=== PATIENT | female | born 1955 | race Caucasian/White ===

== ENCOUNTER → 2020-07-09 | Outpatient (CLI) | payer OTHER ==
--- NOTE | 2020-07-09 13:43 | Diagnostic Imaging Report ---
INDICATION: History of renal calculi. COMPARISON: None FINDINGS: Single frontal radiographic view of the abdomen was obtained and demonstrates multiple bulky calcifications projecting over the renal shadow on the left. Largest calculus measures 2.3 x 2.1 cm and appears to project over the renal pelvis. No unexpected radiopaque foreign bodies are seen. Small bowel loops are nondistended. Moderate air and stool is noted within the colon. IMPRESSION: 1. Left-sided renal calculi. 2. Moderate colonic air and stool. Please correlate for constipation. Dictated by: Dictated on workstation # [id number]
== END ==
LOC: RAD 13:03
PROVIDERS: ATTEND Urology
DX: N20.0 Calculus of kidney (principal)
CPT/HCPCS: 74018

== ENCOUNTER 2020-07-17 05:34 | Outpatient (CLI) | payer OTHER ==
[~2020-07-17] VITALS: Ht 160 cm; Wt 95.3 kg
[2020-07-23] MEDS ORDERED: FISH400C PO (13:04)
[2020-07-23] MEDS ORDERED: LOSA1TAB26 PO (13:04)
[2020-07-23] MEDS ORDERED: GUAI120013 PO (13:04)
[2020-07-23] MEDS ORDERED: ACET-2650 PO (13:04)
[2020-07-23] MEDS ORDERED: DULA3PEN SQ (13:04)
[2020-07-23] MEDS ORDERED: MONT10TA32 PO (13:04)
[2020-07-23] MEDS ORDERED: ATOR40TA70 PO (13:04)
[2020-07-23] MEDS ORDERED: ZINC50TA61 PO (13:04)
[2020-07-23] MEDS ORDERED: METF-399 PO (13:04)
[2020-07-23] MEDS ORDERED: CETI10TA49 PO (13:04)
[2020-07-23] MEDS ORDERED: DIPH25CA79 PO (13:04)
[2020-07-23] MEDS ORDERED: MULT400C3 PO (13:04)
[2020-07-24] MEDS ORDERED: TMSL.4C PO (09:59)
[2020-07-24] MEDS ORDERED: TRAM50TA3 PO (09:59)
[2020-07-24] MEDS ORDERED: NITR-65 PO (09:59)
== END 2020-07-23 16:00 | disposition home or self-care (01) ==
LOC: PREOP 05:34
PROVIDERS: ATTEND Urology
DX: Z01.818 Encounter for other preprocedural examination (principal)

== ENCOUNTER 2020-07-24 06:33 | Day surgery (SDC) | payer MEDICARE, OTHER ==
[2020-07-24] VITALS (9 sets, daily range): BP systolic 128–182; BP diastolic 67–116
[~2020-07-24] VITALS: Ht 160 cm; Wt 95.3 kg
[~2020-07-24 06:33] MED LIST: ACET-2650 PO; ATOR40TA70 PO; CETI10TA49 PO; DIPH25CA79 PO; DULA3PEN SQ; FISH400C PO; GUAI120013 PO; LOSA1TAB26 PO; METF-399 PO; MONT10TA32 PO; MULT400C3 PO; ZINC50TA61 PO
[2020-07-24] MEDS ORDERED: proPOfol 200 MG/20 ML (DIPRIVAN) VIAL IV ONE (06:49)
[2020-07-24] MEDS ORDERED: NEOSTIGMINE 3 MG/3 ML VIAL ONE (06:49)
[2020-07-24] MEDS ORDERED: GLYCOPYRROLATE 0.2 MG/ML (ROBINUL) 2 ML VIAL ONE (06:49)
[2020-07-24] MEDS ORDERED: ONDANSETRON 4 MG/2 ML (SDV) Z0FRAN ONE (06:49)
[2020-07-24] MEDS ORDERED: MIDAZOLAM 2 MG/2 ML (VERSED) VIAL ONE (06:49)
[2020-07-24] MEDS ORDERED: SEVOFLURANE (ULTANE) 15 ML INHAL SOLN ONE ×3 (06:49→08:43)
[2020-07-24] MEDS ORDERED: LIDOCAINE PF 2% 5 ML (XYLOCAINE) VIAL ONE (06:49)
[2020-07-24] MEDS ORDERED: fentaNYL INJ 100 MCG/2 ML AMP ONE (06:49)
[2020-07-24] MEDS ORDERED: ROCURONIUM 10 MG/ML 5 ML SYRINGE IV ONE (06:49)
[2020-07-24] MEDS ORDERED: cefTRIAXone FOR IV USE 1,000 MG in WATER (STERILE) FOR INJECTION 10 ML IV ONE (07:00)
--- NOTE | 2020-07-24 07:08 | Progress Note-Pre Operative ---
Pre-Operative Progress Note H&P Reviewed The H&P was reviewed, patient examined and no changes noted. Date Seen by Provider: July 24, 2020 Time Seen by Provider: 07:08 Date H&P Reviewed: July 24, 2020 Time H&P Reviewed: 07:08 Pre-Operative Diagnosis: LT RENAL STONES ROLANDO LOPEZ MD July 24, 2020 07:08
[2020-07-24] MEDS: LACTATED RINGERS 1,000 ML IV PRN ×2 (07:55→08:49)
--- NOTE | 2020-07-24 07:56 | Diagnostic Imaging Report ---
INDICATION: Nephrolithiasis, extracorporeal shock wave lithotripsy. TECHNIQUE: Single supine view of the abdomen 6:52 AM CORRELATION STUDY: 07/09/2020 FINDINGS: Approximately 2.6 x 1.6 cm heterogeneous grouping calcification of the left upper quadrant. Additional adjacent smaller more fragmented calcification projecting inferiorly to this. This overall appears generally stable and project over the left renal silhouette. No definitive abnormal calcification in the right renal silhouette and/or expected course of either ureter. Overlying bowel gas pattern is nonobstructed. Mild to moderate stool retention. IMPRESSION: 1. No appreciable change in configuration of the calcifications over the left renal silhouette. Dictated by: Dictated on workstation # [id number]
--- NOTE | 2020-07-24 08:22 | Progress Note-Post Operative ---
Post-Operative Progess Note Surgeon (s)/Sales And Catering Coordinator (s) Surgeon ROLANDO LOPEZ MD Sales And Catering Coordinator: NONE Pre-Operative Diagnosis LT RENAL STONES Post-Operative Diagnosis SAME Procedure & Operative Findings Date of Procedure 07/24/20 Procedure Performed/Findings CYSTOSCOPY WITH INSERTION OF LT URETERAL STENT AND LT ESWL Anesthesia Type GENERAL Estimated Blood Loss Estimated blood loss (mL): NONE Specimens/Packing Specimens Removed NONE Packing: NONE ROLANDO LOPEZ MD July 24, 2020 08:21
[2020-07-24] MEDS ORDERED: KETOROLAC 30 MG/ML VIAL ONE (08:23)
[2020-07-24] MEDS ORDERED: FUROSEMIDE 40 MG/4 ML INJ (LASIX) ONE (08:23)
--- NOTE | 2020-07-24 08:25 | Discharge Inst-Urology ---
Discharge Inst-Urology Reconcile Patient Problems Problems Reviewed?: Yes Final Diagnosis LT RENAL STONES Patient Instructions/Follow Up Plan/Assessment/Instructions Please make appointment to been seen in office Tuesday 08/08, KUB prior to it. KUB on way home Post ESWL instructions Increase oral fluids for 48 hours and then as needed. Diet and Activity as tolerated. If questions or concerns contact your physician Or seek help at emergency department. ROLANDO LOPEZ MD July 24, 2020 08:25
[2020-07-24] MEDS ORDERED: PHENYLEPHRINE 100 MCG/ML 10 ML (ANESTHESIA) SYR ONE (08:57)
[2020-07-24] MEDS ORDERED: PROMETHAZINE INJ 25 MG/ML (PHENERGAN) AMP IVP ONE (09:15)
[2020-07-24] MEDS ORDERED: MEPERIDINE (DEMEROL) INJ 50 MG/ML IVP ONE (09:15)
[2020-07-24] MEDS ORDERED: morphine INJ 10 MG/ML 1ML (SYR OR VIAL) IVP ONE (09:15)
[2020-07-24] MEDS ORDERED: ONDANSETRON 4 MG/2 ML (SDV) Z0FRAN IVP PRN (09:15)
--- NOTE | 2020-07-24 09:16 | Anesthesia-General Post-Op ---
General Patient Condition Mental Status/LOC: Same as Preop Cardiovascular: Satisfactory Nausea/Vomiting: Absent Respiratory: Satisfactory Pain: Controlled Complications: Absent Post Op Complications Complications None Follow Up Care/Instructions Patient Instructions None needed. Anesthesia/Patient Condition Patient Condition Patient is doing well, no complaints, stable vital signs, no apparent adverse anesthesia problems. No complications reported per nursing. JOSE R SELBY CRNA July 24, 2020 09:16
[2020-07-24] MEDS ORDERED: TMSL.4C PO (09:59)
[2020-07-24] MEDS ORDERED: NITR-65 PO (09:59)
[2020-07-24] MEDS ORDERED: TRAM50TA3 PO (09:59)
--- NOTE | 2020-07-24 10:46 | Diagnostic Imaging Report ---
INDICATION: Postop ESWL. COMPARISON: 07/24/2020 FINDINGS: A left-sided double-J stent has been placed in good alignment. There has been interval maceration and fragmentation's of left renal calculi. No radiopaque stone along the course of the left shunt. Right flank is negative. The bowel gas pattern is nonobstructive. IMPRESSION: Interval maceration and fragmentation of left-sided intrarenal stones with a double-J stent placed projecting in good alignment. Dictated by: Dictated on workstation # [id number]
--- NOTE | 2020-07-24 13:37 | OPERATIVE REPORT ---
DATE OF SERVICE: 07/24/2020 PREOPERATIVE DIAGNOSIS: Left renal stones. POSTOPERATIVE DIAGNOSIS: Left renal stones. OPERATION PERFORMED: Cystoscopy and insertion of left ureteral stent and left ESWL. SURGEON: Dhaval Lopez MD ANESTHESIA: General. COMPLICATIONS: None. PROCEDURE: The patient with large burden of left renal stones. We decided to have ESWL even if repeated. She refused to go to [place] or [facility] in [place] for percutaneous nephrolithotripsy or antegrade ureterolithotripsy. Taken to the cystoscopy suite, put in the lithotomy position, genitalia were prepped and draped in the usual sterile fashion. Cystoscope was introduced into the bladder. The bladder was essentially normal. The left ureteral orifice was visualized. A 6-Korean 26 cm stent was passed into it and guided fluoroscopically bypassing the left renal stone above it, removing the guidewire, the stent was seen jetting nicely proximally fluoroscopically and distally endoscopically. Bladder was evacuated and the cystoscope was removed. The patient was moved to the ESWL bed supine. The stone, especially the large size pelvic stone was localized and shocks were delivered at kV of 6, a total of 3000 shocks were delivered with fragmentation of the stone. The patient received 40 mg of Lasix and 30 mg of Toradol IV at the end of the procedure. She tolerated the procedure and anesthesia well and was sent to recovery room in stable condition. PLAN: Repeat ESWL in 2 weeks, which the patient was fully aware of it preoperatively. Job ID: [id number] DocumentID: [id number] Dictated Date: 07/24/2020 08:54:28 Water Treatment Plant Operator Date: 07/24/2020 13:36:15 Dictated By: DHAVAL LOPEZ MD
== END 2020-07-24 11:05 | disposition home or self-care (01) ==
LOC: SDC 06:33
PROVIDERS: ATTEND Urology
DX: N20.0 Calculus of kidney (principal); I10 Essential (primary) hypertension; E78.5 Hyperlipidemia, unspecified; E11.9 Type 2 diabetes mellitus without complications; Z79.82 Long term (current) use of aspirin; Z79.899 Other long term (current) drug therapy; Z79.84 Long term (current) use of oral hypoglycemic drugs; Z88.5 Allergy status to narcotic agent; Z91.041 Radiographic dye allergy status; Z90.710 Acquired absence of both cervix and uterus; Z80.9 Family history of malignant neoplasm, unspecified
CPT/HCPCS: 50590; 52332; 74018; 76000; 87081; C2625

== ENCOUNTER → 2020-08-02 | Outpatient (CLI) | payer MEDICARE ==
[~2020-08-02] MED LIST changes: +NITR-65 PO; +TMSL.4C PO; +TRAM50TA3 PO
== END | disposition home or self-care (01) ==
LOC: PREOP 07:12
PROVIDERS: ATTEND Urology
DX: Z01.818 Encounter for other preprocedural examination (principal)

== ENCOUNTER → 2020-08-07 | Outpatient (CLI) | payer MEDICARE ==
--- NOTE | 2020-08-07 15:57 | Diagnostic Imaging Report ---
INDICATION: Left renal stones, status post lithotripsy. COMPARISON: 07/24/2020 TECHNIQUE: Single radiograph of the abdomen dated 08/07/2020 FINDINGS: Left sided ureteral stent is again identified, stable. Multiple calcifications are again identified overlying the left renal shadow centrally. These appears stable to slightly more prominent than compared to the recent examination. No suspicious calcifications along the course of the left ureter. No suspicious calcifications associated with overlying the right renal shadow. Nonobstructive bowel gas pattern. No acute osseous abnormality. IMPRESSION: Multiple left-sided renal calculi are again identified, appearing minimally more prominent than the recent examination. Left-sided ureteral stent remains in place without abnormal calcifications along the course of the left ureteral stent. Dictated by: Dictated on workstation # [id number]
== END ==
LOC: RAD 12:15
PROVIDERS: ATTEND Urology
DX: N20.0 Calculus of kidney (principal); Z98.890 Other specified postprocedural states; Z96.0 Presence of urogenital implants
CPT/HCPCS: 74018

== ENCOUNTER 2020-08-08 06:13 | Day surgery (SDC) | payer MEDICARE ==
[~2020-08-08] VITALS: Ht 165 cm; Wt 95.3 kg
[2020-08-08] VITALS (11 sets, daily range): BP systolic 128–150; BP diastolic 8–89
[2020-08-08] MEDS ORDERED: cefTRIAXone FOR IV USE 1,000 MG in WATER (STERILE) FOR INJECTION 10 ML IV ONE (06:15)
[2020-08-08] MEDS: LACTATED RINGERS 1,000 ML IV PRN ×2 (06:30→07:55)
[2020-08-08 06:52] LABS: BILIRUBIN,URINE NEGATIVE (NEGATIVE); CLARITY,URINE CLOUDY; COLOR,URINE RED; GLUCOSE, URINE (UA) NEGATIVE (NEGATIVE); KETONES,URINE NEGATIVE (NEGATIVE); LEUKOCYTE ESTERASE ,URINE 2+ (NEGATIVE); NITRITE,URINE NEGATIVE (NEGATIVE); PH,URINE 6.5 (5-9); PROTEIN,URINE 2+ (NEGATIVE)
[2020-08-08] MEDS ORDERED: LIDOCAINE PF 2% 5 ML (XYLOCAINE) VIAL ONE (06:52)
[2020-08-08] MEDS ORDERED: proPOfol 200 MG/20 ML (DIPRIVAN) VIAL IV ONE (06:52)
[2020-08-08] MEDS ORDERED: SEVOFLURANE (ULTANE) 15 ML INHAL SOLN ONE ×2 (06:52→07:54)
[2020-08-08] MEDS ORDERED: fentaNYL INJ 100 MCG/2 ML AMP ONE (06:53)
[2020-08-08] MEDS ORDERED: MIDAZOLAM 2 MG/2 ML (VERSED) VIAL ONE (06:53)
[2020-08-08] MEDS ORDERED: ONDANSETRON 4 MG/2 ML (SDV) Z0FRAN ONE (06:55)
--- NOTE | 2020-08-08 07:00 | Progress Note-Pre Operative ---
Pre-Operative Progress Note H&P Reviewed The H&P was reviewed, patient examined and no changes noted. Date Seen by Provider: Aug 08, 2020 Time Seen by Provider: 07:00 Date H&P Reviewed: Aug 08, 2020 Time H&P Reviewed: 07:00 Pre-Operative Diagnosis: LT RENAL STONES ROLANDO LOPEZ MD Aug 08, 2020 07:00
[2020-08-08 07:06] LABS: BACTERIA,URINE TRACE /HPF; RBC,URINE TNTC /HPF; SQUAMOUS EPITHELIAL CELL,UR 0-2 /HPF
--- NOTE | 2020-08-08 07:28 | Progress Note-Post Operative ---
Post-Operative Progess Note Surgeon (s)/Mix Mill Tender (s) Surgeon ROLANDO LOPEZ MD Mix Mill Tender: NONE Pre-Operative Diagnosis LT RENAL STONES Post-Operative Diagnosis SAME Procedure & Operative Findings Date of Procedure 08/08/20 Procedure Performed/Findings LT ESWL Anesthesia Type GENERAL Estimated Blood Loss Estimated blood loss (mL): NONE Specimens/Packing Specimens Removed NONE Packing: NONE ROLANDO LOPEZ MD Aug 08, 2020 07:28
--- NOTE | 2020-08-08 07:30 | Discharge Inst-Urology ---
Discharge Inst-Urology Reconcile Patient Problems Problems Reviewed?: Yes Final Diagnosis LT RENAL STONES Patient Instructions/Follow Up Plan/Assessment/Instructions Please make appointment to been seen in office Sunday 08/20, KUB prior to it. KUB on way home Post ESWL instructions Increase oral fluids for 48 hours and then as needed. Diet and Activity as tolerated. If questions or concerns contact your physician Or seek help at emergency department. ROLANDO LOPEZ MD Aug 08, 2020 07:30
--- NOTE | 2020-08-08 07:43 | Diagnostic Imaging Report ---
INDICATION: Kidney stones Supine view of the abdomen shows a left ureteral stent present. No ureteral stones are seen. There are multiple stones in the mid and lower pole of the left kidney. No urinary tract stones on the right are seen. Bowel gas pattern is within normal limits. No mass is evident. There is no acute bony abnormality. IMPRESSION: Stable left ureteral stent and urinary tract stones when compared to the 08/07/2020 study. Dictated by: Dictated on workstation # [id number]
[2020-08-08] MEDS ORDERED: KETOROLAC 30 MG/ML VIAL ONE (07:47)
[2020-08-08] MEDS ORDERED: FUROSEMIDE 40 MG/4 ML INJ (LASIX) ONE (07:48)
--- NOTE | 2020-08-08 08:11 | Anesthesia-General Post-Op ---
General Patient Condition Mental Status/LOC: Same as Preop Cardiovascular: Satisfactory Nausea/Vomiting: Absent Respiratory: Satisfactory Pain: Controlled Complications: Absent Post Op Complications Complications None Follow Up Care/Instructions Patient Instructions None needed. Anesthesia/Patient Condition Patient Condition Patient is doing well, no complaints, stable vital signs, no apparent adverse anesthesia problems. No complications reported per nursing. ROSSI SEXTON CRNA Aug 08, 2020 08:11
[2020-08-08] MEDS ORDERED: MEPERIDINE (DEMEROL) INJ 50 MG/ML IVP ONE (08:15)
[2020-08-08] MEDS ORDERED: ONDANSETRON 4 MG/2 ML (SDV) Z0FRAN IVP PRN (08:15)
[2020-08-08] MEDS ORDERED: morphine INJ 10 MG/ML 1ML (SYR OR VIAL) IVP ONE (08:15)
[2020-08-08] MEDS ORDERED: fentaNYL INJ 100 MCG/2 ML AMP IVP ONE (08:15)
[2020-08-08] MEDS ORDERED: NITR-65 PO (09:00)
[2020-08-08] MEDS ORDERED: TRAM50TA3 PO (09:00)
[2020-08-08] MEDS ORDERED: TMSL.4C PO (09:00)
--- NOTE | 2020-08-08 11:20 | Diagnostic Imaging Report ---
INDICATION: Status post lithotripsy. TIME OF EXAM: 10:54 AM. COMPARISON: Correlation is made to the prior exam from earlier this same day. FINDINGS: The left-sided nephroureteral stent remains in place. Numerous calcific fragments in the lower pole of the left kidney are again noted. There appears to be further fragmentation since lithotripsy. No definite calculi along the course of the stent are identified. The bowel gas pattern is unremarkable. IMPRESSION: Left-sided renal calculi, status post lithotripsy, with fragmentation. No definite ureteral calculi are seen. Dictated by: Dictated on workstation # [id number]
--- NOTE | 2020-08-08 12:33 | OPERATIVE REPORT ---
DATE OF SERVICE: 08/08/2020 PREOPERATIVE DIAGNOSIS: Left renal stones. POSTOPERATIVE DIAGNOSIS: Left renal stones. OPERATION PERFORMED: Left ESWL. SURGEON: Dhaval Lopez MD ANESTHESIA: General. COMPLICATIONS: None. DESCRIPTION OF PROCEDURE: Under satisfactory general anesthesia, the patient in a supine position on the ESWL table, we first localized the remaining fragments from the previous ESWL. We delivered shocks at kV of 6 and we proceeded laterally to the other fragments and deliver more shocks for a total of 3000. The stone seemed to fragment nicely under fluoroscopy. The patient received 30 mg of Toradol and 40 mg of Lasix IV at the end of the procedure. She tolerated the procedure and anesthesia well and was sent to recovery room in stable condition. Job ID: [id number] DocumentID: [id number] Dictated Date: 08/08/2020 07:53:25 Drill Rig Operator Date: 08/08/2020 12:32:14 Dictated By: DHAVAL LOPEZ MD
== END 2020-08-08 11:00 | disposition home or self-care (01) ==
LOC: SDC 06:13
PROVIDERS: ATTEND Urology
DX: N20.0 Calculus of kidney (principal); I10 Essential (primary) hypertension; E11.9 Type 2 diabetes mellitus without complications; Z79.899 Other long term (current) drug therapy; Z79.84 Long term (current) use of oral hypoglycemic drugs
CPT/HCPCS: 74018; 81000; 87081; 87088

== ENCOUNTER → 2020-08-14 | Outpatient (CLI) | payer MEDICARE | END | disposition home or self-care (01) | LOC: PREOP 05:33 | PROVIDERS: ATTEND Urology | DX: Z01.818 Encounter for other preprocedural examination (principal) ==

== ENCOUNTER → 2020-08-20 | Outpatient (CLI) | payer MEDICARE ==
[~2020-08-20] MED LIST changes: +TRM50T PO
--- NOTE | 2020-08-20 14:23 | Diagnostic Imaging Report ---
INDICATION: Left nephrolithiasis There is left double-J ureteral stent. There is a large calculus in the inferior pole of left kidney. There is a small calcification projecting over the distal left ureter near the ureteropelvic junction that could be a ureteral calculus. Bowel gas pattern is normal. IMPRESSION: Left nephrolithiasis. Dictated by: Dictated on workstation # [id number]
== END ==
LOC: RAD 14:05
PROVIDERS: ATTEND Urology
DX: N20.0 Calculus of kidney (principal)
CPT/HCPCS: 74018

== ENCOUNTER 2020-08-21 06:13 | Day surgery (SDC) | payer MEDICARE ==
[2020-08-21] VITALS (11 sets, daily range): BP systolic 70–163; BP diastolic 30–80
[~2020-08-21] VITALS: Ht 160.2 cm; Wt 95.3 kg
[~2020-08-21 06:13] MED LIST changes: -TRM50T PO
[2020-08-21] MEDS ORDERED: cefTRIAXone 1,000 MG in WATER (STERILE) FOR INJECTION 10 ML IV ONE (06:30)
[2020-08-21] MEDS: LACTATED RINGERS 1,000 ML IV PRN ×2 (06:38→08:19)
[2020-08-21 06:52] LABS: BILIRUBIN,URINE NEGATIVE (NEGATIVE); CLARITY,URINE CLEAR; COLOR,URINE YELLOW; GLUCOSE, URINE (UA) NEGATIVE (NEGATIVE); KETONES,URINE NEGATIVE (NEGATIVE); LEUKOCYTE ESTERASE ,URINE 1+ (NEGATIVE); NITRITE,URINE NEGATIVE (NEGATIVE); PROTEIN,URINE NEGATIVE (NEGATIVE)
--- NOTE | 2020-08-21 07:03 | Progress Note-Pre Operative ---
Pre-Operative Progress Note H&P Reviewed The H&P was reviewed, patient examined and no changes noted. Date Seen by Provider: Aug 21, 2020 Time Seen by Provider: 07:03 Date H&P Reviewed: Aug 21, 2020 Time H&P Reviewed: 07:03 Pre-Operative Diagnosis: LT RENAL STONES ROLANDO LOPEZ MD Aug 21, 2020 07:03
[2020-08-21] MEDS ORDERED: proPOfol 200 MG/20 ML (DIPRIVAN) VIAL IV ONE ×2 (07:16→07:51)
[2020-08-21] MEDS ORDERED: MIDAZOLAM 2 MG/2 ML (VERSED) VIAL ONE (07:16)
[2020-08-21] MEDS ORDERED: fentaNYL INJ 100 MCG/2 ML AMP ONE (07:16)
[2020-08-21 07:19] LABS: BACTERIA,URINE FEW /HPF; RBC,URINE >100 /HPF
[2020-08-21] MEDS ORDERED: PROPOFOL INJECTION 50 ML IV ONE (07:19)
[2020-08-21] MEDS ORDERED: LIDOCAINE PF 2% 5 ML (XYLOCAINE) VIAL ONE (07:22)
[2020-08-21] MEDS ORDERED: FUROSEMIDE 40 MG/4 ML INJ (LASIX) ONE (07:33)
[2020-08-21] MEDS ORDERED: KETOROLAC 30 MG/ML VIAL ONE (07:33)
--- NOTE | 2020-08-21 07:40 | Progress Note-Post Operative ---
Post-Operative Progess Note Surgeon (s)/Glazier Supervisor (s) Surgeon ROLANDO LOPEZ MD Glazier Supervisor: NONE Pre-Operative Diagnosis LT RENAL STONES Post-Operative Diagnosis SAME Procedure & Operative Findings Date of Procedure 08/21/20 Procedure Performed/Findings LT ESWL Anesthesia Type GENERAL Estimated Blood Loss Estimated blood loss (mL): NONE Specimens/Packing Specimens Removed NONE Packing: NONE ROLANDO LOPEZ MD Aug 21, 2020 07:40
--- NOTE | 2020-08-21 07:42 | Discharge Inst-Urology ---
Discharge Inst-Urology Reconcile Patient Problems Problems Reviewed?: Yes Final Diagnosis LT RENAL STONES Patient Instructions/Follow Up Plan/Assessment/Instructions Please make appointment to been seen in office next Thursday for cysto and removal of stent. KUB prior to office KUB on way home Post ESWL instructions Increase oral fluids for 48 hours and then as needed. Diet and Activity as tolerated. If questions or concerns contact your physician Or seek help at emergency department. ROLANDO LOPEZ MD Aug 21, 2020 07:42
[2020-08-21] MEDS ORDERED: ONDANSETRON 4 MG/2 ML (SDV) Z0FRAN ONE (07:44)
--- NOTE | 2020-08-21 08:10 | Diagnostic Imaging Report ---
INDICATION: Lithotripsy, renal stones. COMPARISON: 08/20/2020 TECHNIQUE: Single radiograph of the abdomen dated 08/21/2020. FINDINGS: Left ureteral stent is again identified, appearing stable from the prior examination. Multiple calcifications are again noted overlying the left renal shadow, similar to the prior examination. Suggestion of a calcification within the left lower pelvis is noted, concerning for a ureterolith. No suspicious calcifications overlying the right renal shadow. Nonobstructive bowel gas pattern. No free air. Scattered osseous degenerative changes without acute osseous abnormality. IMPRESSION: Left-sided ureteral stent remains in place with multiple stable left-sided renal calculi identified. Questionable distal left ureterolith adjacent to the distal left ureteral stent. Dictated by: Dictated on workstation # [id number]
[2020-08-21] MEDS ORDERED: TRM50T PO (09:21)
[2020-08-21] MEDS ORDERED: TMSL.4C PO (09:21)
[2020-08-21] MEDS ORDERED: NITR-65 PO (09:21)
--- NOTE | 2020-08-21 09:52 | Diagnostic Imaging Report ---
INDICATION: Status post ESWL. COMPARISON: Earlier same day FINDINGS: Single frontal radiographic view of the abdomen was obtained and again demonstrates indwelling left-sided double-J ureteral stent and staghorn calculus projecting over the left renal shadow. There is faint questionable density projecting over the distal margins of the ureteral stent, which may represent residual retained fragmented calculus. No other unexpected extraosseous calcifications or radiopaque foreign bodies are seen. Small bowel loops are nondistended. There is no large collection of free intraperitoneal air. IMPRESSION: 1. Redemonstration of left-sided double-J ureteral stent with possible retained calculus within the distal left ureter. 2. Redemonstration staghorn calculus of the left kidney. Dictated by: Dictated on workstation # [id number]
--- NOTE | 2020-08-21 12:04 | Anesthesia-General Post-Op ---
General Patient Condition Mental Status/LOC: Same as Preop Cardiovascular: Satisfactory Nausea/Vomiting: Absent Respiratory: Satisfactory Pain: Controlled Complications: Absent Post Op Complications Complications None Follow Up Care/Instructions Patient Instructions None needed. Anesthesia/Patient Condition Patient Condition Patient is doing well, no complaints, stable vital signs, no apparent adverse anesthesia problems. No complications reported per nursing. ROSSI SEXTON CRNA Aug 21, 2020 12:04
--- NOTE | 2020-08-21 12:50 | OPERATIVE REPORT ---
DATE OF SERVICE: 08/21/2020 PREOPERATIVE DIAGNOSIS: Left renal stones. POSTOPERATIVE DIAGNOSIS: Left renal stones. OPERATION PERFORMED: Left ESWL. SURGEON: Dhaval Lopez MD ANESTHESIA: General. COMPLICATIONS: None. DESCRIPTION OF PROCEDURE: Under satisfactory general anesthesia, the patient in supine position on the ESWL table, the left renal stones were localized. Shocks were delivered at kV of 6, a total of 3000 shocks were delivered. The patient received 40 mg of Lasix and 30 mg of Toradol IV at the end of the procedure. She tolerated the procedure well and anesthesia as well and was sent to recovery room in stable condition. PLAN: We will see her back on Thursday at the office, get a KUB and most probably remove the stent. Job ID: [id number] DocumentID: [id number] Dictated Date: 08/21/2020 07:52:12 Labor Contractor Date: 08/21/2020 12:49:53 Dictated By: DHAVAL LOPEZ MD
== END 2020-08-21 10:30 | disposition home or self-care (01) ==
LOC: SDC 06:13
PROVIDERS: ATTEND Urology
DX: N20.0 Calculus of kidney (principal); E11.9 Type 2 diabetes mellitus without complications; I10 Essential (primary) hypertension; Z79.84 Long term (current) use of oral hypoglycemic drugs; Z79.82 Long term (current) use of aspirin; Z98.890 Other specified postprocedural states; Z88.5 Allergy status to narcotic agent
CPT/HCPCS: 74018; 81000; 87081; 87088

== ENCOUNTER → 2020-08-27 | Outpatient (CLI) | payer MEDICARE ==
[~2020-08-27] MED LIST changes: +TRM50T PO
--- NOTE | 2020-08-27 13:02 | Diagnostic Imaging Report ---
INDICATION: Status post ESWL. Stent removal. COMPARISON: 08/21/2020 FINDINGS: Single frontal supine radiograph view of the abdomen was obtained and again demonstrates indwelling left-sided double-J ureteral stent. Also again identified is subtle extraosseous opacity projecting over the distal left stent suspicious for retained distal ureteral calculus. Large staghorn calculus of the inferior pole of the left kidney is also again noted. No unexpected radiopaque foreign bodies are seen. Small bowel loops are nondistended. IMPRESSION: 1. Redemonstration indwelling left-sided double-J ureteral stent with potential retained calculus in distal left ureter. 2. Redemonstration large left staghorn calculus. Dictated by: Dictated on workstation # [id number]
== END ==
LOC: RAD 12:27
PROVIDERS: ATTEND Urology
DX: N20.2 Calculus of kidney with calculus of ureter (principal); Z98.890 Other specified postprocedural states
CPT/HCPCS: 74018

== ENCOUNTER → 2020-09-17 | Outpatient (CLI) | payer MEDICARE ==
--- NOTE | 2020-09-17 17:16 | Diagnostic Imaging Report ---
INDICATION: Follow-up renal calculus. COMPARISON: 08/27/2020 FINDINGS: Two supine radiographic views the abdomen and pelvis were obtained and show interval removal of previously identified left double-J ureteral stent. Large staghorn calculus is again identified projecting over the inferior pole of the left kidney. No unexpected radiopaque foreign bodies are seen. Small bowel loops are nondistended. There is no large collection of free intraperitoneal air. A large amount of air and stool is seen scattered throughout the colon. IMPRESSION: 1. Redemonstration of left-sided staghorn calculus. 2. Moderate colonic air and stool. Please correlate for constipation. Dictated on workstation # [id number]
== END ==
LOC: RAD 14:34
DX: N20.0 Calculus of kidney (principal)
CPT/HCPCS: 74018

== ENCOUNTER → 2020-11-13 | Outpatient (CLI) | payer MEDICARE ==
--- NOTE | 2020-11-13 16:15 | Diagnostic Imaging Report ---
INDICATION: Left ureteral stone. TIME OF EXAM: 1:55 PM CORRELATION is made with prior radiograph from 09/17/2020. There has been significant decrease in overall stone burden in the left kidney lower pole since exam 2 months earlier. No definite calculi along the course of the ureters is seen. Bowel gas pattern is unremarkable. IMPRESSION: Decrease in stone burden of the left lower pole when compared with the exam 2 months earlier. Dictated by: Dictated on workstation # [id number]
== END ==
LOC: RAD 13:34
PROVIDERS: ATTEND Urology
DX: N20.0 Calculus of kidney (principal)
CPT/HCPCS: 74018

== ENCOUNTER → 2021-02-06 | Outpatient (CLI) | payer MEDICARE ==
[~2021-02-06] MED LIST changes: +MONT-40 PO; -MONT10TA32 PO
--- NOTE | 2021-02-06 18:17 | Diagnostic Imaging Report ---
INDICATION: Abdominal pain. EXAMINATION: Two views were obtained. FINDINGS: The lung bases are clear. Bowel gas pattern is nonspecific. There are no abnormal abdominal calcifications. The osseous structures are unremarkable. IMPRESSION: Nonspecific bowel gas pattern. Dictated by: Dictated on workstation # [id number]
== END ==
LOC: RAD 15:26
PROVIDERS: ATTEND Urology
DX: R10.9 Unspecified abdominal pain (principal)
CPT/HCPCS: 74018

== ENCOUNTER → 2021-08-07 | Outpatient (CLI) | payer MEDICARE ==
[2021-08-07 15:32] LABS: BILIRUBIN,URINE NEGATIVE (NEGATIVE); CLARITY,URINE CLEAR; COLOR,URINE YELLOW; GLUCOSE, URINE (UA) NEGATIVE (NEGATIVE); KETONES,URINE NEGATIVE (NEGATIVE); LEUKOCYTE ESTERASE ,URINE TRACE (NEGATIVE); NITRITE,URINE NEGATIVE (NEGATIVE); PROTEIN,URINE NEGATIVE (NEGATIVE)
[2021-08-07 15:56] LABS: BACTERIA,URINE FEW /HPF
--- NOTE | 2021-08-07 17:07 | Diagnostic Imaging Report ---
INDICATION: History of nephrolithiasis. FINDINGS: The lung bases are clear. Bowel gas pattern is nonspecific. There is a calcification projected over the inferior pole of the left kidney. There are no other abnormal abdominal calcifications. IMPRESSION: 4 to 5 mm stone projected over the inferior pole of the left kidney. Nonspecific bowel gas pattern. Dictated by: Dictated on workstation # [id number]
== END ==
LOC: RAD 15:04
PROVIDERS: ATTEND Urology
DX: N20.0 Calculus of kidney (principal)
CPT/HCPCS: 74018; 81000; 87088